=== PATIENT | female | born 1995 | race American Indian/Alaskan Native ===

== ENCOUNTER 2021-09-01 04:40 | Inpatient (IN) | payer OTHER ==
[~2021-09-01 04:40] MED LIST: Citric Acid/Sodium Citrate Solution 30 ML Cup PO ONE; Metoclopramide 10 MG/2 ML SDV IVPUSH ONE; Oxytocin/Lactated Ringers 10 UNIT/1,000 ML BAG IV SCH; ceFAZolin 2 GM in Sodium Chloride 0.9% 50 ML IV ONE
--- NOTE | 2021-09-01 06:19 | PCM.SN.2 ---
- Free Text/Narrative Note: 09/01/2021 [id number] IV started times 1 attempt 20 guage left hand. Flushed and secured by RN. [employer]
[2021-09-01] MEDS: Lactated Ringers 1,000 ML IV SCH ×2 (06:30→07:22)
[2021-09-01] MEDS ORDERED: Citric Acid/Sodium Citrate Solution 30 ML Cup ONE (06:47)
[2021-09-01] MEDS ORDERED: Metoclopramide 10 MG/2 ML SDV ONE (06:48)
[2021-09-01] MEDS ORDERED: Morphine PF 10 MG/10 ML SDV ONE (07:06)
[2021-09-01] MEDS ORDERED: Ondansetron 4 MG/2 ML SDV ONE (07:08)
[2021-09-01] MEDS ORDERED: Ketorolac 30 MG/ML SDV ONE (07:08)
[2021-09-01] MEDS ORDERED: ceFAZolin 1 GM Vial ONE (07:08)
[2021-09-01] MEDS ORDERED: Oxytocin 10 Units/1 ML SDV ONE (07:08)
--- NOTE | 2021-09-01 07:13 | PCM.LDHP ---
L&D History of Present Illness - General Date of Service: 09/01/21 Admit Problem/Dx: Patient Status Order with Admit Dx/Problem 09/01/21 03:59 Patient Status [ADT] Routine Admission Diagnosis/Problem Admission Diagnosis/Problem - History of Present Illness Introduction:: 26 year old at 39 weeks here for repeat . PNC with myself without complications. 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: , Spontaneous Psychiatric History: Reports: ADHD, Bipolar, Depression Endocrine/Metabolic History: Reports: Obesity/BMI 30+ - Past Surgical History Female Surgical History: Reports: Section Social & Family History - Family History Family Medical History: No Pertinent Family History - Tobacco Use Tobacco Use Status *Q: Former Tobacco User Years of Tobacco use: 9 Packs/Tins Daily: 1 Used Tobacco, but Quit: Yes Month/Year Tobacco Last Used: 03/2021 Second Hand Smoke Exposure: No - Caffeine Use Caffeine Use: Reports: None - Recreational Drug Use Recreational Drug Use: Yes Drug Use in Last 12 Months: No Recreational Drug Type: 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, Marijuana/Hashish, Methamphetamine H&P Review of Systems - Review of Systems: Review Of Systems: See Below General: Reports: No Symptoms HEENT: Reports: No Symptoms Pulmonary: Reports: No Symptoms Cardiovascular: Reports: No Symptoms Gastrointestinal: Reports: No Symptoms Genitourinary: Reports: No Symptoms Musculoskeletal: Reports: No Symptoms Skin: Reports: No Symptoms Psychiatric: Reports: No Symptoms Neurological: Reports: No Symptoms Hematologic/Lymphatic: Reports: No Symptoms Immunologic: Reports: No Symptoms L&D Exam - Exam Exam: See Below - Vital Signs Vital Signs: Last Vital Signs Temp 36.7 C 09/01/21 04:59 Pulse 88 09/01/21 04:59 Resp 14 09/01/21 04:59 BP 110/68 09/01/21 04:59 Pulse Ox 98 09/01/21 04:59 Weight: 109.769 kg - OB Specific Movement: Active Heart Tones: Present Presentation: Vertex - Exam General: Alert, Oriented HEENT: PERRLA, Conjunctiva Clear, EACs Clear, EOMI, Hearing Intact, Mucosa Moist & Devine, Nares Patent, Normal Nasal Septum, Posterior Pharynx Clear, TMs Clear Neck: Supple, Trachea Midline Lungs: Clear to Auscultation, Normal Respiratory Effort Cardiovascular: Regular Rate, Regular Rhythm GI/Abdominal Exam: Normal Bowel Sounds, Soft, Non-Tender, No Organomegaly, No Distention, No Abnormal Bruit, No Mass Back Exam: Normal Inspection, Full Range of Motion Extremities: Normal Inspection, Normal Range of Motion, Non-Tender, No Pedal E cl, Normal Capillary Refill Skin: Warm, Dry, Intact Neurological: Cranial Nerves Intact Psychiatric: Alert, Normal Affect, Normal Mood - Patient Data Lab Results Last 24 hrs: Laboratory Results - last 24 hr 09/01/21 09/01/21 09/01/21 Range/Units 01:15 01:15 05:08 WBC (3.98-10.04) K/mm3 RBC (3.98-5.22) M/mm3 Hgb (11.2-15.7) gm/dl Hct (34.1-44.9) % MCV (79.4-94.8) fl MCH (25.6-32.2) pg MCHC (32.2-35.5) g/dl RDW Std Deviation (36.4-46.3) fL Plt Count (182-369) K/mm3 MPV (9.4-12.3) fl Neut % (Auto) (34.0-71.1) % Lymph % (Auto) (19.3-51.7) % [place] % (Auto) (4.7-12.5) % Eos % (Auto) (0.7-5.8) Baso % (Auto) (0.1-1.2) % Neut # (Auto) (1.56-6.13) K/mm3 Lymph # (Auto) (1.18-3.74) K/mm3 [place] # (Auto) (0.24-0.36) K/mm3 Eos # (Auto) (0.04-0.36) K/mm3 Baso # (Auto) (0.01-0.08) K/mm3 Urine Color Yellow (Yellow) Urine Appearance Clear (Clear) Urine pH 6.0 (5.0-8.0) Ur Specific [place] > or = 1.030 (1.005-1.030) Urine Protein Negative (Negative) Urine Glucose (UA) Negative (Negative) Urine Ketones Negative (Negative) Urine Occult Blood Negative (Negative) Urine Nitrite Negative (Negative) Urine Bilirubin Negative (Negative) Urine Urobilinogen 0.2 (0.2-1.0) Ur Leukocyte Esterase Negative (Negative) Urine Opiates Screen Negative (WJZZGN=348) Ur Buprenorphine Scrn Negative (CUTOFF=10) Ur Oxycodone Screen Negative (IZK4MU=934) Urine Methadone Screen Negative (ITFSGW=703) Ur Propoxyphene Screen Negative (XGJBAI=146) Ur Barbiturates Screen Negative (YIBIEM=524) Ur Tricyclics Screen Negative (AVAGAV=430) Ur Phencyclidine Scrn Negative (CUTOFF=25) Ur Amphetamine Screen Negative (FPRETJ=962) U Methamphetamines Scrn Negative (EPTPVC=913) U Benzodiazepines Scrn Negative (GNJVNO=932) U Cocaine Metab Screen Negative (OJUOIZ=722) U Marijuana (THC) Screen Negative (CUTOFF=50) SARS-CoV-2 RNA (DAKSHA) (NEGATIVE) Blood Type O POSITIVE Gel Antibody Screen Negative 09/01/21 09/01/21 Range/Units 05:08 05:25 WBC 8.70 (3.98-10.04) K/mm3 RBC 4.40 (3.98-5.22) M/mm3 Hgb 12.9 (11.2-15.7) gm/dl Hct 38.1 (34.1-44.9) % MCV 86.6 (79.4-94.8) fl MCH 29.3 (25.6-32.2) pg MCHC 33.9 (32.2-35.5) g/dl RDW Std Deviation 44.8 (36.4-46.3) fL Plt Count 246 (182-369) K/mm3 MPV 11.0 (9.4-12.3) fl Neut % (Auto) 65.8 (34.0-71.1) % Lymph % (Auto) 24.3 (19.3-51.7) % [place] % (Auto) 8.3 (4.7-12.5) % Eos % (Auto) 0.5 L (0.7-5.8) Baso % (Auto) 0.2 (0.1-1.2) % Neut # (Auto) 5.73 (1.56-6.13) K/mm3 Lymph # (Auto) 2.11 (1.18-3.74) K/mm3 [place] # (Auto) 0.72 H (0.24-0.36) K/mm3 Eos # (Auto) 0.04 (0.04-0.36) K/mm3 Baso # (Auto) 0.02 (0.01-0.08) K/mm3 Urine Color (Yellow) Urine Appearance (Clear) Urine pH (5.0-8.0) Ur Specific [place] (1.005-1.030) Urine Protein (Negative) Urine Glucose (UA) (Negative) Urine Ketones (Negative) Urine Occult Blood (Negative) Urine Nitrite (Negative) Urine Bilirubin (Negative) Urine Urobilinogen (0.2-1.0) Ur Leukocyte Esterase (Negative) Urine Opiates Screen (HUDCGW=918) Ur Buprenorphine Scrn (CUTOFF=10) Ur Oxycodone Screen (KIT7TE=457) Urine Methadone Screen (QFCYJC=099) Ur Propoxyphene Screen (IASFVT=538) Ur Barbiturates Screen (PJWAKZ=525) Ur Tricyclics Screen (ITMUZC=045) Ur Phencyclidine Scrn (CUTOFF=25) Ur Amphetamine Screen (XLCVMF=828) U Methamphetamines Scrn (PSHVCE=291) U Benzodiazepines Scrn (DQLTQY=953) U Cocaine Metab Screen (WJXUGL=358) U Marijuana (THC) Screen (CUTOFF=50) SARS-CoV-2 RNA (DAKSHA) Negative (NEGATIVE) Blood Type Gel Antibody Screen Result Diagrams: 09/01/21 05:08 Problem List Initiated/Reviewed/Updated: Yes Orders Last 24hrs: Active Orders 24 hr Category Date Time Status Patient Status [ADT] Routine ADT 09/01/21 03:59 Active Antiembolic Devices [RC] .Routine Care 09/01/21 04:03 Active Antiembolic Devices [RC] PER UNIT ROUTINE Care 09/01/21 04:00 Active Communication Order [RC] ROUTINE Care 09/01/21 03:59 Active Heart Tones [RC] PER UNIT ROUTINE Care 09/01/21 03:59 Active Non Stress Test [RC] PER UNIT ROUTINE Care 09/01/21 03:59 Active Insert Urinary Catheter [OM.PC] Routine Care 09/01/21 03:59 Ordered Peripheral IV Care [RC] . DIRECTED Care 09/01/21 04:00 Active Procedure Site Prep Instruct [RC] ASDIRECTED Care 09/01/21 03:59 Active Urinary Catheter Assessment [RC] ASDIRECTED Care 09/01/21 04:00 Active VTE/DVT Education [RC] PER UNIT ROUTINE Care 09/01/21 04:03 Active Verify Patient Consent Obtain [RC] PER UNIT ROUTINE Care 09/01/21 03:59 Active Vital Signs [RC] PFP Care 09/01/21 03:59 Active Nothing Per Oral Diet [DIET] Diet 09/01/21 Breakfast Active GROUP B STREP BY PCR [MOLEC] Routine Lab 09/01/21 05:22 Received PATIENT RETYPE [BBK] Routine Lab 09/01/21 06:57 Ordered RAPID PLASMA REAGIN,RPR [CHEM] Routine Lab 09/01/21 05:08 Received Lactated Ringers [Ringers, Lactated] 1,000 ml Med 09/01/21 04:00 Active IV ASDIRECTED Oxytocin/Lactated Ringers [Pitocin in LR 10 Units/1,000 Med 09/01/21 04:00 Active ML] 10 unit in 1,000 ml IV ASDIRECTED Sodium Chloride 0.9% [Saline Flush] Med 09/01/21 09:00 Active 10 ml FLUSH 0900,2100 DVT/VTE Prophylaxis Reflex [OM.PC] Routine Oth 09/01/21 03:59 Ordered Peripheral IV Insertion Adult [OM.PC] Routine Oth 09/01/21 03:59 Ordered Schedule Procedure [COMM] Per Unit Routine Oth 09/01/21 03:59 Ordered Sequential Compression Device [OM.PC] Routine Oth 09/01/21 03:59 Ordered Resuscitation Status Routine Resus Stat 09/01/21 03:59 Ordered Medication Orders Oxytocin/Lactated Ringer's (Pitocin In Lr 10 Units/1,000 Ml) 10 unit in 1,000 mls @ 100 mls/hr IV ASDIRECTED ESTRADA Lactated Ringer's (Ringers, Lactated) 1,000 mls @ 125 mls/hr IV ASDIRECTED ESTRADA Last Admin: 09/01/21 06:30 Dose: 125 mls/hr Documented by: JOSEP Sodium Chloride (Sodium Chloride 0.9% 10 Ml Syringe) 10 ml FLUSH 0900,2100 [facility] Assessment/Plan Comment:: 26 year old here for repeat . Inmate. routine orders.
--- NOTE | 2021-09-01 07:34 | PCM.PREANE ---
Preanesthetic Assessment - Procedure Proposed Procedure: section - Anesthesia/Transfusion/Family Hx Anesthesia History: Prior Anesthesia Without Reaction Family History of Anesthesia Reaction: No Transfusion History: No Prior Transfusion(s) Intubation History: Unknown - Review of Systems General: No Symptoms Pulmonary: No Symptoms Cardiovascular: No Symptoms Gastrointestinal: No Symptoms Neurological: No Symptoms Other: Reports: None - Physical Assessment NPO Status Date: 08/31/21 NPO Status Time: 20:00 Vital Signs: Last Vital Signs Temp 36.7 C 09/01/21 04:59 Pulse 88 09/01/21 04:59 Resp 14 09/01/21 04:59 BP 110/68 09/01/21 04:59 Pulse Ox 98 09/01/21 04:59 Height: 1.65 m Weight: 109.769 kg ASA Class: 2 Mental Status: Alert & Oriented x3 Airway Class: Mallampati = 1 Dentition: Reports: Missing Tooth/Teeth (right upper side ) Thyro-Mental Finger Breadths: 3 Mouth Opening Finger Breadths: 5 ROM/Head Extension: Full Lungs: Clear to Auscultation, Normal Respiratory Effort Cardiovascular: Regular Rate, Regular Rhythm - Lab Values: Laboratory Last Values WBC 8.70 K/mm3 (3.98-10.04) 09/01/21 05:08 RBC 4.40 M/mm3 (3.98-5.22) 09/01/21 05:08 Hgb 12.9 gm/dl (11.2-15.7) 09/01/21 05:08 Hct 38.1 % (34.1-44.9) 09/01/21 05:08 MCV 86.6 fl (79.4-94.8) 09/01/21 05:08 MCH 29.3 pg (25.6-32.2) 09/01/21 05:08 MCHC 33.9 g/dl (32.2-35.5) 09/01/21 05:08 RDW Std Deviation 44.8 fL (36.4-46.3) 09/01/21 05:08 Plt Count 246 K/mm3 (182-369) 09/01/21 05:08 MPV 11.0 fl (9.4-12.3) 09/01/21 05:08 Neut % (Auto) 65.8 % (34.0-71.1) 09/01/21 05:08 Lymph % (Auto) 24.3 % (19.3-51.7) 09/01/21 05:08 [place] % (Auto) 8.3 % (4.7-12.5) 09/01/21 05:08 Eos % (Auto) 0.5 (0.7-5.8) L 09/01/21 05:08 Baso % (Auto) 0.2 % (0.1-1.2) 09/01/21 05:08 Neut # (Auto) 5.73 K/mm3 (1.56-6.13) 09/01/21 05:08 Lymph # (Auto) 2.11 K/mm3 (1.18-3.74) 09/01/21 05:08 [place] # (Auto) 0.72 K/mm3 (0.24-0.36) H 09/01/21 05:08 Eos # (Auto) 0.04 K/mm3 (0.04-0.36) 09/01/21 05:08 Baso # (Auto) 0.02 K/mm3 (0.01-0.08) 09/01/21 05:08 Urine Color Yellow (Yellow) 09/01/21 01:15 Urine Appearance Clear (Clear) 09/01/21 01:15 Urine pH 6.0 (5.0-8.0) 09/01/21 01:15 Ur Specific [place] > or = 1.030 (1.005-1.030) 09/01/21 01:15 Urine Protein Negative (Negative) 09/01/21 01:15 Urine Glucose (UA) Negative (Negative) 09/01/21 01:15 Urine Ketones Negative (Negative) 09/01/21 01:15 Urine Occult Blood Negative (Negative) 09/01/21 01:15 Urine Nitrite Negative (Negative) 09/01/21 01:15 Urine Bilirubin Negative (Negative) 09/01/21 01:15 Urine Urobilinogen 0.2 (0.2-1.0) 09/01/21 01:15 Ur Leukocyte Esterase Negative (Negative) 09/01/21 01:15 Urine Opiates Screen Negative (ICXKRK=723) 09/01/21 01:15 Ur Buprenorphine Scrn Negative (CUTOFF=10) 09/01/21 01:15 Ur Oxycodone Screen Negative (RFQ6IY=979) 09/01/21 01:15 Urine Methadone Screen Negative (XIBMGY=492) 09/01/21 01:15 Ur Propoxyphene Screen Negative (OXZZES=158) 09/01/21 01:15 Ur Barbiturates Screen Negative (MLYZMK=330) 09/01/21 01:15 Ur Tricyclics Screen Negative (TIIURB=702) 09/01/21 01:15 Ur Phencyclidine Scrn Negative (CUTOFF=25) 09/01/21 01:15 Ur Amphetamine Screen Negative (UBZJMO=125) 09/01/21 01:15 U Methamphetamines Scrn Negative (RFBDUH=278) 09/01/21 01:15 U Benzodiazepines Scrn Negative (SDQFOA=516) 09/01/21 01:15 U Cocaine Metab Screen Negative (GMOJEC=103) 09/01/21 01:15 U Marijuana (THC) Screen Negative (CUTOFF=50) 09/01/21 01:15 SARS-CoV-2 RNA (DAKSHA) Negative (NEGATIVE) 09/01/21 05:25 Blood Type O POSITIVE 09/01/21 05:08 Gel Antibody Screen Negative 09/01/21 05:08 - Allergies Allergies/Adverse Reactions: Allergies Allergy/AdvReac Type Severity Reaction Status Date / Time No Known Allergies Allergy Verified 09/01/21 05:05 - Blood Blood Available: Yes Product(s) Available: PRBC - Anesthesia Plan Pre-Op Medication Ordered: Other (OB standing orders ) - Acknowledgements Anesthesia Type Planned: Spinal Pt an Appropriate Candidate for the Planned Anesthesia: Yes Alternatives and Risks of Anesthesia Discussed w Pt/Guardian: Yes Pt/Guardian Understands and Agrees with Anesthesia Plan: Yes PreAnesthesia Questionnaire - Past Health History Medical/Surgical History: Denies 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: , Spontaneous Psychiatric History: Reports: ADHD, Bipolar, Depression Endocrine/Metabolic History: Reports: Obesity/BMI 30+ - Past Surgical History Female Surgical History: Reports: Section - SUBSTANCE USE Tobacco Use Status *Q: Former Tobacco User Tobacco Use Within Last Twelve Months: Cigarettes Second Hand Smoke Exposure: No Recreational Drug Use History: Yes Recreational Drug Type: 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, Marijuana/Hashish, Methamphetamine - HOME MEDS Home Medications: Home Meds Pnv No.95/Ferrous Fum/Folic AC [ Tablet] 1 tab PO DAILY 09/01/21 [History] busPIRone HCl [Buspirone HCl] 15 mg PO DAILY 09/01/21 [History] - CURRENT (IN HOUSE) MEDS Current Meds: Current Medications Oxytocin/Lactated Ringer's (Pitocin In Lr 10 Units/1,000 Ml) 10 unit in 1,000 mls @ 100 mls/hr IV ASDIRECTED ESTRADA Lactated Ringer's (Ringers, Lactated) 1,000 mls @ 125 mls/hr IV ASDIRECTED ESTRADA Last Admin: 09/01/21 07:22 Dose: 125 mls/hr Documented by: Sodium Chloride (Sodium Chloride 0.9% 10 Ml Syringe) 10 ml FLUSH 0900,2100 ESTRADA Discontinued Medications Cefazolin Sodium (Cefazolin 1 Gm Vial) Confirm Administered Dose 2 gm .ROUTE .STK-MED ONE Stop: 09/01/21 07:09 Citric Acid/Sodium Citrate (Citric Acid/Sodium Citrate Solution 30 Ml Cup) 30 ml PO ONETIME ONE Stop: 09/01/21 04:16 Last Admin: 09/01/21 07:22 Dose: 30 ml Documented by: Citric Acid/Sodium Citrate (Citric Acid/Sodium Citrate Solution 30 Ml Cup) Confirm Administered Dose 30 ml .ROUTE .STK-MED ONE Stop: 09/01/21 06:48 Cefazolin Sodium 2 gm/ Sodium (Chloride) 50 mls @ 100 mls/hr IV ONETIME ONE Stop: 09/01/21 04:28 Ketorolac Tromethamine (Ketorolac 30 Mg/Ml Sdv) Confirm Administered Dose 30 mg .ROUTE .STK-MED ONE Stop: 09/01/21 07:09 Metoclopramide HCl (Metoclopramide 10 Mg/2 Ml Sdv) 10 mg IVPUSH ONETIME ONE Stop: 09/01/21 04:16 Last Admin: 09/01/21 07:22 Dose: 10 mg Documented by: Metoclopramide HCl (Metoclopramide 10 Mg/2 Ml Sdv) Confirm Administered Dose 10 mg .ROUTE .STK-MED ONE Stop: 09/01/21 06:49 Morphine Sulfate (Morphine Pf 10 Mg/10 Ml Sdv) Confirm Administered Dose 10 mg .ROUTE .STK-MED ONE Stop: 09/01/21 07:07 Ondansetron HCl (Ondansetron 4 Mg/2 Ml Sdv) Confirm Administered Dose 4 mg .ROUTE .STK-MED ONE Stop: 09/01/21 07:09 Oxytocin (Oxytocin 10 Units/1 Ml Sdv) Confirm Administered Dose 10 unit .ROUTE .STK-MED ONE Stop: 09/01/21 07:09
[2021-09-01] MEDS ORDERED: diphenhydrAMINE 50 MG/ML SDV IVPUSH PRN (07:35)
[2021-09-01] MEDS ORDERED: fentaNYL 100 MCG/2 ML SDV IVPUSH PRN (07:35)
[2021-09-01] MEDS ORDERED: Ondansetron 4 MG/2 ML SDV IVPUSH PRN (07:35)
[2021-09-01] MEDS ORDERED: Bupivacaine 0.5% 30 ML SDV ONE (07:37)
--- NOTE | 2021-09-01 07:39 | PCM.PREANE ---
Preanesthetic Assessment - Procedure Proposed Procedure: section (repeat) - Anesthesia/Transfusion/Family Hx Anesthesia History: Prior Anesthesia Without Reaction Family History of Anesthesia Reaction: No Transfusion History: No Prior Transfusion(s) Intubation History: Unknown - Physical Assessment Vital Signs: Last Vital Signs Temp 36.7 C 09/01/21 04:59 Pulse 88 09/01/21 04:59 Resp 14 09/01/21 04:59 BP 110/68 09/01/21 04:59 Pulse Ox 98 09/01/21 04:59 Height: 1.65 m Weight: 109.769 kg - Lab Values: Laboratory Last Values WBC 8.70 K/mm3 (3.98-10.04) 09/01/21 05:08 RBC 4.40 M/mm3 (3.98-5.22) 09/01/21 05:08 Hgb 12.9 gm/dl (11.2-15.7) 09/01/21 05:08 Hct 38.1 % (34.1-44.9) 09/01/21 05:08 MCV 86.6 fl (79.4-94.8) 09/01/21 05:08 MCH 29.3 pg (25.6-32.2) 09/01/21 05:08 MCHC 33.9 g/dl (32.2-35.5) 09/01/21 05:08 RDW Std Deviation 44.8 fL (36.4-46.3) 09/01/21 05:08 Plt Count 246 K/mm3 (182-369) 09/01/21 05:08 MPV 11.0 fl (9.4-12.3) 09/01/21 05:08 Neut % (Auto) 65.8 % (34.0-71.1) 09/01/21 05:08 Lymph % (Auto) 24.3 % (19.3-51.7) 09/01/21 05:08 [place] % (Auto) 8.3 % (4.7-12.5) 09/01/21 05:08 Eos % (Auto) 0.5 (0.7-5.8) L 09/01/21 05:08 Baso % (Auto) 0.2 % (0.1-1.2) 09/01/21 05:08 Neut # (Auto) 5.73 K/mm3 (1.56-6.13) 09/01/21 05:08 Lymph # (Auto) 2.11 K/mm3 (1.18-3.74) 09/01/21 05:08 [place] # (Auto) 0.72 K/mm3 (0.24-0.36) H 09/01/21 05:08 Eos # (Auto) 0.04 K/mm3 (0.04-0.36) 09/01/21 05:08 Baso # (Auto) 0.02 K/mm3 (0.01-0.08) 09/01/21 05:08 Urine Color Yellow (Yellow) 09/01/21 01:15 Urine Appearance Clear (Clear) 09/01/21 01:15 Urine pH 6.0 (5.0-8.0) 09/01/21 01:15 Ur Specific [place] > or = 1.030 (1.005-1.030) 09/01/21 01:15 Urine Protein Negative (Negative) 09/01/21 01:15 Urine Glucose (UA) Negative (Negative) 09/01/21 01:15 Urine Ketones Negative (Negative) 09/01/21 01:15 Urine Occult Blood Negative (Negative) 09/01/21 01:15 Urine Nitrite Negative (Negative) 09/01/21 01:15 Urine Bilirubin Negative (Negative) 09/01/21 01:15 Urine Urobilinogen 0.2 (0.2-1.0) 09/01/21 01:15 Ur Leukocyte Esterase Negative (Negative) 09/01/21 01:15 Urine Opiates Screen Negative (JBKBIN=676) 09/01/21 01:15 Ur Buprenorphine Scrn Negative (CUTOFF=10) 09/01/21 01:15 Ur Oxycodone Screen Negative (ISF4AM=812) 09/01/21 01:15 Urine Methadone Screen Negative (UBKZLY=509) 09/01/21 01:15 Ur Propoxyphene Screen Negative (PQZFUE=342) 09/01/21 01:15 Ur Barbiturates Screen Negative (INJIZR=279) 09/01/21 01:15 Ur Tricyclics Screen Negative (LPRINF=935) 09/01/21 01:15 Ur Phencyclidine Scrn Negative (CUTOFF=25) 09/01/21 01:15 Ur Amphetamine Screen Negative (BRFPCQ=469) 09/01/21 01:15 U Methamphetamines Scrn Negative (OOYROJ=623) 09/01/21 01:15 U Benzodiazepines Scrn Negative (XGLYKG=234) 09/01/21 01:15 U Cocaine Metab Screen Negative (GFHINC=305) 09/01/21 01:15 U Marijuana (THC) Screen Negative (CUTOFF=50) 09/01/21 01:15 SARS-CoV-2 RNA (DAKSHA) Negative (NEGATIVE) 09/01/21 05:25 Blood Type O POSITIVE 09/01/21 05:08 Gel Antibody Screen Negative 09/01/21 05:08 - Allergies Allergies/Adverse Reactions: Allergies Allergy/AdvReac Type Severity Reaction Status Date / Time No Known Allergies Allergy Verified 09/01/21 05:05 PreAnesthesia Questionnaire - Past Health History Medical/Surgical History: Denies 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: , Spontaneous Psychiatric History: Reports: ADHD, Bipolar, Depression Endocrine/Metabolic History: Reports: Obesity/BMI 30+ - Past Surgical History Female Surgical History: Reports: Section - SUBSTANCE USE Tobacco Use Status *Q: Former Tobacco User Tobacco Use Within Last Twelve Months: Cigarettes Second Hand Smoke Exposure: No Recreational Drug Use History: Yes Recreational Drug Type: 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, Marijuana/Hashish, Methamphetamine - HOME MEDS Home Medications: Home Meds Pnv No.95/Ferrous Fum/Folic AC [ Tablet] 1 tab PO DAILY 09/01/21 [History] busPIRone HCl [Buspirone HCl] 15 mg PO DAILY 09/01/21 [History] - CURRENT (IN HOUSE) MEDS Current Meds: Current Medications Oxytocin/Lactated Ringer's (Pitocin In Lr 10 Units/1,000 Ml) 10 unit in 1,000 mls @ 100 mls/hr IV ASDIRECTED ESTRADA Lactated Ringer's (Ringers, Lactated) 1,000 mls @ 125 mls/hr IV ASDIRECTED [facility] Last Admin: 09/01/21 07:22 Dose: 125 mls/hr Documented by: Sodium Chloride (Sodium Chloride 0.9% 10 Ml Syringe) 10 ml FLUSH 0900,2100 ESTRADA Discontinued Medications Cefazolin Sodium (Cefazolin 1 Gm Vial) Confirm Administered Dose 2 gm .ROUTE .STK-MED ONE Stop: 09/01/21 07:09 Citric Acid/Sodium Citrate (Citric Acid/Sodium Citrate Solution 30 Ml Cup) 30 ml PO ONETIME ONE Stop: 09/01/21 04:16 Last Admin: 09/01/21 07:22 Dose: 30 ml Documented by: Citric Acid/Sodium Citrate (Citric Acid/Sodium Citrate Solution 30 Ml Cup) Confirm Administered Dose 30 ml .ROUTE .STK-MED ONE Stop: 09/01/21 06:48 Cefazolin Sodium 2 gm/ Sodium (Chloride) 50 mls @ 100 mls/hr IV ONETIME ONE Stop: 09/01/21 04:28 Ketorolac Tromethamine (Ketorolac 30 Mg/Ml Sdv) Confirm Administered Dose 30 mg .ROUTE .ST-MED ONE Stop: 09/01/21 07:09 Metoclopramide HCl (Metoclopramide 10 Mg/2 Ml Sdv) 10 mg IVPUSH ONETIME ONE Stop: 09/01/21 04:16 Last Admin: 09/01/21 07:22 Dose: 10 mg Documented by: Metoclopramide HCl (Metoclopramide 10 Mg/2 Ml Sdv) Confirm Administered Dose 10 mg .ROUTE .STK-MED ONE Stop: 09/01/21 06:49 Morphine Sulfate (Morphine Pf 10 Mg/10 Ml Sdv) Confirm Administered Dose 10 mg .ROUTE .ST-MED ONE Stop: 09/01/21 07:07 Ondansetron HCl (Ondansetron 4 Mg/2 Ml Sdv) Confirm Administered Dose 4 mg .ROUTE .ST-MED ONE Stop: 09/01/21 07:09 Oxytocin (Oxytocin 10 Units/1 Ml Sdv) Confirm Administered Dose 10 unit .ROUTE .ST-MED ONE Stop: 09/01/21 07:09
[2021-09-01] MEDS ORDERED: Dexamethasone 4 MG/ML SDV ONE (08:33)
[2021-09-01] MEDS ORDERED: Sodium Chloride 0.9% 10 ML Syringe FLUSH SCH (09:00)
--- NOTE | 2021-09-01 09:00 | PCM.POSTAN ---
POST ANESTHESIA ASSESSMENT - MENTAL STATUS Mental Status: Other (drowsy) - VITAL SIGNS Vital Signs: 0850 119/58 95 % on RA 176 HR 15 RR 97.3 Last Vital Signs Temp 36.7 C 09/01/21 04:59 Pulse 88 09/01/21 04:59 Resp 14 09/01/21 04:59 BP 110/68 09/01/21 04:59 Pulse Ox 98 09/01/21 04:59 - RESPIRATORY Respiratory Status: Respiratory Rate WNL, Airway Patent, O2 Saturation Stable - CARDIOVASCULAR CV Status: Pulse Rate WNL, Blood Pressure Stable - GASTROINTESTINAL GI Status: No Symptoms - PAIN Pain Score: 0 - POST OP HYDRATION Hydration Status: Adequate & Stable
--- NOTE | 2021-09-01 09:03 | PCM.OPNOTE ---
- General Post-Op/Procedure Note Date of Surgery/Procedure: 09/01/21 Operative Procedure(s): repeat section Findings: Viable male, weight 3650g, 9/9 APGARS at 0812. Normal tubes and ovaries. Thick bladder adhesion to uterus. Pre Op Diagnosis: prior , desires repeat, term Post-Op Diagnosis: Same Anesthesia Technique: Spinal Primary Surgeon: Doreen Walters Anesthesia Provider: Marlene Waterman Pathology: none Fluid Replacement, Intraop: 1,500 Output, Urine Amount: 100 EBL in mLs: 800 Complications: none Condition: Good Free Text/Narrative:: The patient was taken to the operating room where spinal anesthesia was dosed to surgical levels without difficulty. The patient was prepped and draped in the usual sterile fashion in the dorsal supine position with a leftward tilt. A Pfannenstiel skin incision was made with the scalpel through prior incision and carried through to the underlying layer of fascia. The fascia was incised in the midline and extended laterally using Rose scissors. Ernestine clamps were used to elevate the superior aspect of the fascial incision, which was elevated, and the underlying rectus muscles were dissected off bluntly and using Rose scissors. Attention was then turned to the inferior aspect of the fascial incision, which in similar fashion was grasped with Ernestine clamps, elevated, and the underlying rectus muscles were dissected off bluntly and using the rose. The rectus muscles were dissected in the midline. The peritoneum was entered bluntly; this incision was extended superiorly and inferiorly with good visualization of the bladder. Thick band of adhesion to area of intended low transverse uterine incsion. The bladder blade was inserted. This band taken down with cautery with careful visualization of the bladder. The bladder blade was reinserted. The lower uterine segment was incised in a transverse fashion using the scalpel and with digital traction. Clear fluid was noted. The was subsequently delivered by flexing the head to the incision. Body and shoulders followed without difficulty. The cord was clamped and cut. The infant was subsequently handed to the awaiting market research manager whose presence had been requested.. The placenta was delivered spontaneously intact with a three-vessel cord noted. The uterus was exteriorized and cleared of all clots and debris. The uterine incision was repaired in 2 layers using 0 monocryl. Hemostasis was visualized. Hemostasis was visualized bilaterally. The uterus was returned to the abdomen. The uterine incision was reexamined and it was noted to be hemostatic. The pelvis was copiously irrigated. The fascia was closed with 1 PDS suture, and the skin was closed with 3-0 monocryl. Sponge, lap, and instrument counts were correct x2. The patient was stable at the completion of the procedure and was subsequently transferred to the recovery room in stable condition.
[2021-09-01] MEDS ORDERED: Dextrose 5%-Lactated Ringers 1,000 ML IV SCH (10:22)
[2021-09-01] MEDS ORDERED: Naloxone 0.4 MG/ML SDV IVPUSH PRN (10:22)
[2021-09-01] MEDS ORDERED: ePHEDrine 50 MG/ML SDV IVPUSH PRN (10:22)
[2021-09-01] MEDS ORDERED: Lactated Ringers 2,000 ML ONE (10:37)
[2021-09-01] MEDS: diphenhydrAMINE 50 MG/ML SDV IVPUSH PRN ×2 (13:08→22:05)
[2021-09-01] MEDS: Ketorolac 30 MG/ML SDV IVPUSH SCH ×2 (14:30→20:20)
[2021-09-02] MEDS: Acetaminophen/oxyCODONE 325-5 MG Tab PO PRN ×5 (00:48→21:01)
[2021-09-02] MEDS: Ketorolac 30 MG/ML SDV IVPUSH SCH (02:19)
[2021-09-02] MEDS: Ibuprofen 600 MG Tab PO PRN ×3 (02:27→18:08)
[2021-09-02] MEDS ORDERED: diphenhydrAMINE 25 MG Cap PO PRN (06:06)
--- NOTE | 2021-09-02 08:33 | PCM48HPAN ---
Post Anesthesia Note - EVALUATION WITHIN 48HRS OF ANESTHETIC Vital Signs in Normal Range: Yes Patient Participated in Evaluation: Yes Respiratory Function Stable: Yes Airway Patent: Yes Cardiovascular Function Stable: Yes Hydration Status Stable: Yes Pain Control Satisfactory: Yes (states right thigh is a little dumb yet. right lateral thigh area-reassured) Nausea and Vomiting Control Satisfactory: Yes Mental Status Recovered: Yes Vital Signs: Last Vital Signs Temp 97.9 F 09/02/21 04:45 Pulse 71 09/02/21 04:45 Resp 16 09/02/21 04:45 BP 102/62 09/02/21 04:45 Pulse Ox 96 09/02/21 04:45
--- NOTE | 2021-09-02 09:59 | PCM.SN.2 ---
- Free Text/Narrative Note: Post Operative Progress Note POD #1 Subjective: Doing well overall. Ambulating without difficulty. Lochia minimal. Voiding without difficulty. Passing flatus. Tolerating regular diet without nausea or vomiting. Pain controlled with oral medications. Bottlefeeding with minimal difficulty. Denies having any breastmilk duction at this time. Objective: Vitals: Vital Signs - 24 hr 09/01/21 09/01/21 09/01/21 10:03 10:42 11:05 Temperature 36.6 C 36.4 C 36.7 C Temperature [ Temporal] Pulse, 93 84 73 Peripheral Pulse, Peripheral [ Left Pulse Oximetry] Respiratory 16 16 Rate Blood Pressure 102/74 119/76 123/58 L Blood Pressure [Right Upper Arm] O2 Sat by Pulse 100 97 96 Oximetry 09/01/21 09/01/21 09/01/21 12:14 16:12 19:26 Temperature 36.5 C 36.6 C Temperature [ Temporal] Pulse, 80 93 116 H Peripheral Pulse, Peripheral [ Left Pulse Oximetry] Respiratory 16 18 Rate Blood Pressure 103/57 L 121/63 Blood Pressure [Right Upper Arm] O2 Sat by Pulse 97 95 98 Oximetry 09/01/21 09/02/21 20:30 04:45 Temperature Temperature [ 37.2 C 36.6 C Temporal] Pulse, Peripheral Pulse, 105 H 71 Peripheral [ Left Pulse Oximetry] Respiratory 16 16 Rate Blood Pressure Blood Pressure 115/66 102/62 [Right Upper Arm] O2 Sat by Pulse 97 96 Oximetry Physical Exam General: Alert and oriented, no acute distress Lungs: Clear to auscultation bilaterally Heart: Regular rate and rhythm Abdomen: Soft, minimal appropriate tenderness, non-distended, fundus midline, nontender and at the umbilicus Incision: Clean, dry and intact, no erythema, bleeding or drainage with Steri- Strips in place Extremities: Trace edema in bilateral lower extremities to mid shins, no calf tenderness bilaterally Labs: Laboratory Results - last 24 hr 09/01/21 09/01/21 09/02/21 Range/Units 05:08 05:22 05:35 WBC 9.61 (3.98-10.04) K/mm3 RBC 3.55 L (3.98-5.22) M/mm3 Hgb 10.4 L D (11.2-15.7) gm/dl Hct 31.3 L (34.1-44.9) % MCV 88.2 (79.4-94.8) fl MCH 29.3 (25.6-32.2) pg MCHC 33.2 (32.2-35.5) g/dl RDW Std Deviation 44.5 (36.4-46.3) fL Plt Count 221 (182-369) K/mm3 MPV 10.9 (9.4-12.3) fl Neut % (Auto) 64.0 (34.0-71.1) % Lymph % (Auto) 25.0 (19.3-51.7) % [place] % (Auto) 10.6 (4.7-12.5) % Eos % (Auto) 0.3 L (0.7-5.8) Baso % (Auto) 0.1 (0.1-1.2) % Neut # (Auto) 6.15 H (1.56-6.13) K/mm3 Lymph # (Auto) 2.40 (1.18-3.74) K/mm3 [place] # (Auto) 1.02 H (0.24-0.36) K/mm3 Eos # (Auto) 0.03 L (0.04-0.36) K/mm3 Baso # (Auto) 0.01 (0.01-0.08) K/mm3 RPR Non-reactive (NONREACTIVE) Group B Strep (PCR) Negative (NEGATIVE) ASSESSMENT: 26-year-old female -0-0-4 s/p repeat section POD #1 for history of section, complicated by ADHD, bipolar disorder, depression, obesity, history of drug use and current incarceration PLAN: Doing well Bottlefeeding with minimal difficulty. Assist as needed Assist as needed to help reduce breast milk production Incision healing well. Continue to keep clean and dry. Lochia minimal. Continue to monitor for appropriate lochia. Continue routine post-operative care Anticipate discharge from hospital tomorrow Arian Modi MD 9:58 AM 09/02/2021
[2021-09-02] MEDS: Docusate Sodium 100 MG Cap PO SCH (21:01)
[2021-09-03] MEDS: Acetaminophen/oxyCODONE 325-5 MG Tab PO PRN ×2 (01:43→08:20)
[2021-09-03] MEDS: Ibuprofen 600 MG Tab PO PRN ×2 (02:17→10:48)
--- NOTE | 2021-09-03 07:55 | PCM.DCSUM1 ---
Discharge Summary - Discharge Data Discharge Date: 09/03/21 Discharge Disposition: Home, Self-Care 01 Condition: Good - Referral to Home Health Primary Care Physician: Doreen Walters MD - Patient Summary/Data Operative Procedure(s) Performed: repeat section Complications: None Consults: None Recommended Follow-up Testing/Procedures: Follow up in [address] Walters [facility] Course: 26 y/o presented at 39 wks for planned repeat . Procedure u ncomplicated. See operative note. did well. Discharged on PPD#2 - Patient Instructions Diet: Regular Diet as Tolerated Activity: No Lifting Over 10 Pounds (for 6 weeks ) Activity, Other: Pelvic rest for 6 weeks Showering/Bathing: May Shower, No Tub Bathing/Swimming Wound/Incision Care: Keep Operative Site/Wound Site Clean and Dry Notify Provider of: Fever, Increased Pain, Swelling and Redness, Drainage, Nausea and/or Vomiting - Discharge Plan *PRESCRIPTION DRUG MONITORING PROGRAM REVIEWED*: No *COPY OF PRESCRIPTION DRUG MONITORING REPORT IN PATIENT SUNIL: No Home Medications: Home Meds Pnv No.95/Ferrous Fum/Folic AC [ Tablet] 1 tab PO DAILY 09/01/21 [History] busPIRone HCl [Buspirone HCl] 15 mg PO DAILY 09/01/21 [History] Docusate Sodium [Colace] 100 mg PO BID cap 09/03/21 [Rx] Ibuprofen [Motrin] 600 mg PO Q6H PRN tablet 09/03/21 [Rx] Referrals: Josseline Reed MD [Physician] - (3 weeks for post op check ) - Discharge Summary/Plan Comment DC Time >30 min.: No Total # of Minutes for Discharge Time: 15 - Patient Data Vitals - Most Recent: Last Vital Signs Temp 37.0 C 09/03/21 02:14 Pulse 64 09/03/21 02:14 Resp 15 09/03/21 02:14 BP 108/60 09/03/21 02:14 Pulse Ox 99 09/03/21 02:14 Weight - Most Recent: 109.769 kg I&O - Last 24 hours: Intake & Output 09/02/21 09/03/21 09/03/21 22:59 06:59 14:59 Intake Total 60 Balance 60 Med Orders - Current: Current Medications Diphenhydramine HCl (Diphenhydramine 25 Mg Cap) 25 mg PO Q6H PRN PRN Reason: Itching Last Admin: 09/02/21 06:28 Dose: 25 mg Documented by: Docusate Sodium (Docusate Sodium 100 Mg Cap) 100 mg PO BID ESTRADA Last Admin: 09/02/21 21:01 Dose: 100 mg Documented by: Ephedrine Sulfate (Ephedrine 50 Mg/Ml Sdv) 5 mg IVPUSH SEECOMMENT PRN PRN Reason: Other Ibuprofen (Ibuprofen 600 Mg Tab) 600 mg PO Q6H PRN PRN Reason: mild pain or fever Last Admin: 09/03/21 02:17 Dose: 600 mg Documented by: Naloxone HCl (Naloxone 0.4 Mg/Ml Sdv) 0.1 mg IVPUSH SEECOMMENT PRN PRN Reason: Respiratory Depression Oxycodone/Acetaminophen (Acetaminophen/Oxycodone 325-5 Mg Tab) 1 tab PO Q4H PRN PRN Reason: Pain (moderate 4-6) Last Admin: 09/03/21 01:43 Dose: 1 tab Documented by: Discontinued Medications Bupivacaine HCl (Bupivacaine 0.5% 30 Ml Sdv) Confirm Administered Dose 30 ml .ROUTE .ST[facility]-MED ONE Stop: 09/01/21 07:38 Last Admin: 09/01/21 08:12 Dose: 30 ml Documented by: Cefazolin Sodium (Cefazolin 1 Gm Vial) Confirm Administered Dose 2 gm .ROUTE .STK-MED ONE Stop: 09/01/21 07:09 Citric Acid/Sodium Citrate (Citric Acid/Sodium Citrate Solution 30 Ml Cup) 30 ml PO ONETIME ONE Stop: 09/01/21 04:16 Last Admin: 09/01/21 07:22 Dose: 30 ml Documented by: Citric Acid/Sodium Citrate (Citric Acid/Sodium Citrate Solution 30 Ml Cup) Confirm Administered Dose 30 ml .ROUTE .STK-MED ONE Stop: 09/01/21 06:48 Last Admin: 09/01/21 11:29 Dose: Not Given Documented by: Dexamethasone (Dexamethasone 4 Mg/Ml Sdv) Confirm Administered Dose 4 mg .ROUTE .STK-MED ONE Stop: 09/01/21 08:34 Diphenhydramine HCl (Diphenhydramine 50 Mg/Ml Sdv) 25 mg IVPUSH Q6H PRN PRN Reason: Pruritis Diphenhydramine HCl (Diphenhydramine 50 Mg/Ml Sdv) 25 mg IVPUSH Q6H PRN PRN Reason: Itching or Nausea Last Admin: 09/01/21 22:05 Dose: 25 mg Documented by: Fentanyl (Fentanyl 100 Mcg/2 Ml Sdv) 50 mcg IVPUSH Q5M PRN PRN Reason: Pain Cefazolin Sodium 2 gm/ Sodium (Chloride) 50 mls @ 100 mls/hr IV ONETIME ONE Stop: 09/01/21 04:28 Last Admin: 09/01/21 11:28 Dose: Not Given Documented by: Oxytocin/Lactated Ringer's (Pitocin In Lr 10 Units/1,000 Ml) 10 unit in 1,000 mls @ 100 mls/hr IV ASDIRECTED [facility] Lactated Ringer's (Ringers, Lactated) 1,000 mls @ 125 mls/hr IV ASDIRECTED [facility] Last Admin: 09/01/21 07:22 Dose: 125 mls/hr Documented by: Dextrose/Lactated Ringer's (Dextrose 5%-Lactated Ringers) 1,000 mls @ 125 mls/hr IV ASDIRECTED [facility] Stop: 09/01/21 18:21 Last Admin: 09/01/21 11:45 Dose: 125 mls/hr Documented by: Lactated Ringer's (Ringers, Lactated) Confirm Administered Dose 2,000 mls @ as directed .ROUTE .[facility]-MED ONE Stop: 09/01/21 10:38 Ketorolac Tromethamine (Ketorolac 30 Mg/Ml Sdv) Confirm Administered Dose 30 mg .ROUTE .STK-MED ONE Stop: 09/01/21 07:09 Ketorolac Tromethamine (Ketorolac 30 Mg/Ml Sdv) 30 mg IVPUSH Q6H [facility] Stop: 09/02/21 02:01 Last Admin: 09/02/21 02:19 Dose: Not Given Documented by: Metoclopramide HCl (Metoclopramide 10 Mg/2 Ml Sdv) 10 mg IVPUSH ONETIME ONE Stop: 09/01/21 04:16 Last Admin: 09/01/21 07:22 Dose: 10 mg Documented by: Metoclopramide HCl (Metoclopramide 10 Mg/2 Ml Sdv) Confirm Administered Dose 10 mg .ROUTE .[employer]-MED ONE Stop: 09/01/21 06:49 Last Admin: 09/01/21 11:29 Dose: Not Given Documented by: Morphine Sulfate (Morphine Pf 10 Mg/10 Ml Sdv) Confirm Administered Dose 10 mg .ROUTE .[employer]-MED ONE Stop: 09/01/21 07:07 Ondansetron HCl (Ondansetron 4 Mg/2 Ml Sdv) Confirm Administered Dose 4 mg .ROUTE .[employer]-MED ONE Stop: 09/01/21 07:09 Ondansetron HCl (Ondansetron 4 Mg/2 Ml Sdv) 4 mg IVPUSH ONETIME PRN PRN Reason: Nausea/Vomiting Oxytocin (Oxytocin 10 Units/1 Ml Sdv) Confirm Administered Dose 10 unit .ROUTE .[employer]-MED ONE Stop: 09/01/21 07:09 Sodium Chloride (Sodium Chloride 0.9% 10 Ml Syringe) 10 ml FLUSH 0900,2100 ESTRADA Last Admin: 09/01/21 11:29 Dose: Not Given Documented by:
--- NOTE | 2021-09-03 07:55 | PCM.PNPP ---
- General Info Date of Service: 09/03/21 Functional Status: Reports: Pain Controlled, Tolerating Diet, Ambulating, Urinating - Review of Systems General: Reports: No Symptoms Pulmonary: Reports: No Symptoms Cardiovascular: Reports: No Symptoms Gastrointestinal: Reports: Abdominal Pain (managed with medications ) Genitourinary: Reports: No Symptoms Musculoskeletal: Reports: No Symptoms Neurological: Reports: No Symptoms - General Info Date of Service: 09/03/21 - Patient Data Vital Signs - Most Recent: Last Vital Signs Temp 37.0 C 09/03/21 02:14 Pulse 64 09/03/21 02:14 Resp 15 09/03/21 02:14 BP 108/60 09/03/21 02:14 Pulse Ox 99 09/03/21 02:14 Weight - Most Recent: 109.769 kg I&O - Last 24 Hours: Intake & Output 09/02/21 09/03/21 09/03/21 22:59 06:59 14:59 Intake Total 60 Balance 60 Med Orders - Current: Current Medications Diphenhydramine HCl (Diphenhydramine 25 Mg Cap) 25 mg PO Q6H PRN PRN Reason: Itching Last Admin: 09/02/21 06:28 Dose: 25 mg Documented by: Docusate Sodium (Docusate Sodium 100 Mg Cap) 100 mg PO BID ESTRADA Last Admin: 09/02/21 21:01 Dose: 100 mg Documented by: Ephedrine Sulfate (Ephedrine 50 Mg/Ml Sdv) 5 mg IVPUSH SEECOMMENT PRN PRN Reason: Other Ibuprofen (Ibuprofen 600 Mg Tab) 600 mg PO Q6H PRN PRN Reason: mild pain or fever Last Admin: 09/03/21 02:17 Dose: 600 mg Documented by: Naloxone HCl (Naloxone 0.4 Mg/Ml Sdv) 0.1 mg IVPUSH SEECOMMENT PRN PRN Reason: Respiratory Depression Oxycodone/Acetaminophen (Acetaminophen/Oxycodone 325-5 Mg Tab) 1 tab PO Q4H PRN PRN Reason: Pain (moderate 4-6) Last Admin: 09/03/21 01:43 Dose: 1 tab Documented by: Discontinued Medications Bupivacaine HCl (Bupivacaine 0.5% 30 Ml Sdv) Confirm Administered Dose 30 ml .ROUTE .STK-MED ONE Stop: 09/01/21 07:38 Last Admin: 09/01/21 08:12 Dose: 30 ml Documented by: Cefazolin Sodium (Cefazolin 1 Gm Vial) Confirm Administered Dose 2 gm .ROUTE .[facility] ONE Stop: 09/01/21 07:09 Citric Acid/Sodium Citrate (Citric Acid/Sodium Citrate Solution 30 Ml Cup) 30 ml PO ONETIME ONE Stop: 09/01/21 04:16 Last Admin: 09/01/21 07:22 Dose: 30 ml Documented by: Citric Acid/Sodium Citrate (Citric Acid/Sodium Citrate Solution 30 Ml Cup) Confirm Administered Dose 30 ml .ROUTE .[facility] ONE Stop: 09/01/21 06:48 Last Admin: 09/01/21 11:29 Dose: Not Given Documented by: Dexamethasone (Dexamethasone 4 Mg/Ml Sdv) Confirm Administered Dose 4 mg .ROUTE .[facility] ONE Stop: 09/01/21 08:34 Diphenhydramine HCl (Diphenhydramine 50 Mg/Ml Sdv) 25 mg IVPUSH Q6H PRN PRN Reason: Pruritis Diphenhydramine HCl (Diphenhydramine 50 Mg/Ml Sdv) 25 mg IVPUSH Q6H PRN PRN Reason: Itching or Nausea Last Admin: 09/01/21 22:05 Dose: 25 mg Documented by: Fentanyl (Fentanyl 100 Mcg/2 Ml Sdv) 50 mcg IVPUSH Q5M PRN PRN Reason: Pain Cefazolin Sodium 2 gm/ Sodium (Chloride) 50 mls @ 100 mls/hr IV ONETIME ONE Stop: 09/01/21 04:28 Last Admin: 09/01/21 11:28 Dose: Not Given Documented by: Oxytocin/Lactated Ringer's (Pitocin In Lr 10 Units/1,000 Ml) 10 unit in 1,000 mls @ 100 mls/hr IV ASDIRECTED [facility] Lactated Ringer's (Ringers, Lactated) 1,000 mls @ 125 mls/hr IV ASDIRECTED [facility] Last Admin: 09/01/21 07:22 Dose: 125 mls/hr Documented by: Dextrose/Lactated Ringer's (Dextrose 5%-Lactated Ringers) 1,000 mls @ 125 mls/hr IV ASDIRECTED [facility] Stop: 09/01/21 18:21 Last Admin: 09/01/21 11:45 Dose: 125 mls/hr Documented by: Lactated Ringer's (Ringers, Lactated) Confirm Administered Dose 2,000 mls @ as directed .ROUTE .[employer] ONE Stop: 09/01/21 10:38 Ketorolac Tromethamine (Ketorolac 30 Mg/Ml Sdv) Confirm Administered Dose 30 mg .ROUTE .[facility] ONE Stop: 09/01/21 07:09 Ketorolac Tromethamine (Ketorolac 30 Mg/Ml Sdv) 30 mg IVPUSH Q6H [facility] Stop: 09/02/21 02:01 Last Admin: 09/02/21 02:19 Dose: Not Given Documented by: Metoclopramide HCl (Metoclopramide 10 Mg/2 Ml Sdv) 10 mg IVPUSH ONETIME ONE Stop: 09/01/21 04:16 Last Admin: 09/01/21 07:22 Dose: 10 mg Documented by: Metoclopramide HCl (Metoclopramide 10 Mg/2 Ml Sdv) Confirm Administered Dose 10 mg .ROUTE .[facility] ONE Stop: 09/01/21 06:49 Last Admin: 09/01/21 11:29 Dose: Not Given Documented by: Morphine Sulfate (Morphine Pf 10 Mg/10 Ml Sdv) Confirm Administered Dose 10 mg .ROUTE .[employer] ONE Stop: 09/01/21 07:07 Ondansetron HCl (Ondansetron 4 Mg/2 Ml Sdv) Confirm Administered Dose 4 mg .ROUTE .[facility] ONE Stop: 09/01/21 07:09 Ondansetron HCl (Ondansetron 4 Mg/2 Ml Sdv) 4 mg IVPUSH ONETIME PRN PRN Reason: Nausea/Vomiting Oxytocin (Oxytocin 10 Units/1 Ml Sdv) Confirm Administered Dose 10 unit .ROUTE .[facility] ONE Stop: 09/01/21 07:09 Sodium Chloride (Sodium Chloride 0.9% 10 Ml Syringe) 10 ml FLUSH 0900,2100 [facility] Last Admin: 09/01/21 11:29 Dose: Not Given Documented by: - Infant Interaction Infant Disposition, : in Room with Family Interaction: Holding Infant Feeding: Bottle Fed Infant - Recovery Exam Fundal Tone: Firm Fundal Level: 1 Fingerbreadths Below Umbilicus Fundal Placement: Midline Lochia Amount: Small Lochia Color: Rubra/Red Perineum Description: Intact, Minimal Bruising/Swelling Episiotomy/Laceration: None Bladder Status: Voiding Urinary Elimination: Voided - Exam General: Alert, Oriented, Cooperative Lungs: Clear to Auscultation, Normal Respiratory Effort Cardiovascular: Regular Rate, Regular Rhythm GI/Abdominal Exam: Soft, Non-Tender Extremities: Normal Inspection Skin: Warm, Dry, Intact Wound/Incisions: Healing Well, No Drainage - Problem List & Annotations (1) History of delivery SNOMED Code(s): 441370674 Code(s): Z98.891 - HISTORY OF UTERINE SCAR FROM PREVIOUS SURGERY Status: Acute Current Visit: Yes (2) S/P repeat low transverse SNOMED Code(s): 752303063, [id number], [id number], 662032198, [id number] Code(s): Z98.891 - HISTORY OF UTERINE SCAR FROM PREVIOUS SURGERY Status: Acute Current Visit: Yes - Problem List Review Problem List Initiated/Reviewed/Updated: Yes - My Orders Last 24 Hours: My Active Orders 09/03/21 07:55 Ready for Discharge [RC] PER UNIT ROUTINE - Assessment Assessment:: POD#2 - Plan Plan:: Routine cares Discharge to facility today
[2021-09-03] MEDS: Docusate Sodium 100 MG Cap PO SCH (08:20)
== END 2021-09-03 11:00 | disposition home or self-care (01) | DRG 788 ==
LOC: JD.OB 04:40
PROVIDERS: ADMIT Obstetrics & Gynecology; ATTEND Obstetrics & Gynecology
PROC: 10D00Z1 Extraction of Products of Conception, Low, Open Approach (ICD-10-PCS; principal; 2021-09-01)
DX: O34.211 Maternal care for low transverse scar from previous cesarean delivery (principal); Z37.0 Single live birth; O99.344 Other mental disorders complicating childbirth; F31.9 Bipolar disorder, unspecified; O99.214 Obesity complicating childbirth; F90.9 Attention-deficit hyperactivity disorder, unspecified type; Z20.822 Contact with and (suspected) exposure to COVID-19; Z3A.39 39 weeks gestation of pregnancy; Z87.891 Personal history of nicotine dependence
CPT/HCPCS: 36410; 36415; 59025; 80306; 81003; 85025; 86592; 86850; 86900; 86901; 87653; 94762; A9270-GY; J0690; J1100; J1200; J1885; J2270; J2405; J2590; J2765; J3490; J7120; J7121; U0002